=== PATIENT | female | born 1995 | race Caucasian/White ===

== ENCOUNTER 2017-10-22 21:15 | Emergency (ER) | payer OTHER ==
[~2017-10-22] VITALS: Ht 165.1 cm; Wt 54.9 kg
[2017-10-22 21:24] VITALS: Ht 165.1 cm; Wt 54.9 kg
[2017-10-23 00:20] VITALS: BP 112/64
== END 2017-10-23 00:20 | disposition home or self-care (01) ==
LOC: ED 21:15
DX: O21.9 Vomiting of pregnancy, unspecified (principal); Z3A.01 Less than 8 weeks gestation of pregnancy
CPT/HCPCS: J2405; J3490; J7030; J7050

== ENCOUNTER 2017-11-09 09:44 | Inpatient (IN) | payer OTHER ==
[~2017-11-09] VITALS: Ht 154.9 cm; Wt 58.3 kg
[2017-11-09 11:06] LABS: CALCIUM 9.9 mg/dL (8.5-10.1); CARBON DIOXIDE 31.6 mmol/L (21-32); CHLORIDE SERUM 91 mmol/L (98-107); CREATININE SERUM 0.9 mg/dL (0.6-1.0); GFR1 > 60 mL/min; GLUCOSE SERUM 110 mg/dL (74-106); SODIUM SERUM 131 mmol/L (136-145)
[2017-11-09 11:14] LABS: POTASSIUM SERUM 2.7 mmol/L (3.5-5.1)
[2017-11-09 11:21] LABS: BASOPHIL % 0.4 % (0-2); PLATELET COUNT 303 x10^3mcL (130-400); RED CELL DISTRIBUTION WIDTH 12.3 % (11.5-14.5)
[2017-11-09 12:11] LABS: MAGNESIUM 2.8 mg/dL (1.8-2.4); PHOSPHOROUS 2.6 mg/dL (2.5-4.9)
[2017-11-09 12:16] LABS: T3 TOTAL 1.75 ng/mL
[2017-11-09 12:22] LABS: FREE T4 1.44 ng/dL (0.76-1.46)
[2017-11-09 12:27] LABS: CHOLESTEROL/HDL RATIO 2.2; FREE THYROXINE INDEX 6.3 ug/dL (1.4-4.5); T4(THYROXINE) 21.6 ug/dL (4.7-13.3)
[2017-11-09 13:24] LABS: microscopic required? YES; urine erythrocyte NEGATIVE (NEGATIVE)
[2017-11-09 13:25] VITALS: BP 120/86
[2017-11-09 13:54] LABS: AMPHETAMINE QUAL UR NONE DETECTED (NEG <=1000)
[2017-11-09 16:16] LABS: CALCIUM 8.2 mg/dL (8.5-10.1); CARBON DIOXIDE 28.5 mmol/L (21-32); CHLORIDE SERUM 100 mmol/L (98-107); CREATININE SERUM 0.6 mg/dL (0.6-1.0); GFR1 > 60 mL/min; GLUCOSE SERUM 98 mg/dL (74-106); POTASSIUM SERUM 3.1 mmol/L (3.5-5.1); SODIUM SERUM 132 mmol/L (136-145)
[2017-11-09 17:59] VITALS: BP 110/67
[2017-11-09 21:09] VITALS: BP 116/76
[2017-11-10 05:45] VITALS: BP 105/58
[2017-11-10 06:08] LABS: BASOPHIL % 0.4 % (0-2); PLATELET COUNT 199 x10^3mcL (130-400); RED CELL DISTRIBUTION WIDTH 12.5 % (11.5-14.5)
[2017-11-10 06:18] LABS: CALCIUM 8.1 mg/dL (8.5-10.1); CARBON DIOXIDE 25.3 mmol/L (21-32); CHLORIDE SERUM 103 mmol/L (98-107); CREATININE SERUM 0.5 mg/dL (0.6-1.0); GFR1 > 60 mL/min; GLUCOSE SERUM 76 mg/dL (74-106); MAGNESIUM 2.4 mg/dL (1.8-2.4); POTASSIUM SERUM 3.1 mmol/L (3.5-5.1); SODIUM SERUM 136 mmol/L (136-145)
[2017-11-10 09:07] LABS: TOTAL IRON BINDING CAPACITY 324 ug/dL (250-450)
[2017-11-10 09:08] LABS: IRON 203 ug/dL (50-170)
[2017-11-10 09:22] LABS: RED BLOOD CELLS 4.16 M/mm3 (4.10-5.10)
[2017-11-10 09:29] VITALS: BP 117/66
[2017-11-10 09:31] VITALS: BP 117/66; BP 85/54
[2017-11-10 12:36] VITALS: BP 110/60
[2017-11-10 17:26] VITALS: BP 100/55
[2017-11-10 21:22] VITALS: BP 111/63
[2017-11-11 05:41] VITALS: BP 101/58
[2017-11-11] MEDS ORDERED: DICLEGIS1 TCP PO (05:41)
[2017-11-11 05:52] LABS: BASOPHIL % 0.5 % (0-2); PLATELET COUNT 156 x10^3mcL (130-400); RED CELL DISTRIBUTION WIDTH 12.4 % (11.5-14.5)
[2017-11-11 06:15] LABS: CALCIUM 7.9 mg/dL (8.5-10.1); CARBON DIOXIDE 23.1 mmol/L (21-32); CHLORIDE SERUM 105 mmol/L (98-107); CREATININE SERUM 0.4 mg/dL (0.6-1.0); GFR1 > 60 mL/min; GLUCOSE SERUM 74 mg/dL (74-106); PHOSPHOROUS 3.2 mg/dL (2.5-4.9); POTASSIUM SERUM 3.7 mmol/L (3.5-5.1); SODIUM SERUM 137 mmol/L (136-145)
[2017-11-11 09:21] VITALS: BP 109/69
[2017-11-11 09:39] VITALS: BP 109/69
== END 2017-11-11 10:45 | disposition home or self-care (01) | DRG 566 ==
LOC: ED 09:44 → DU 11:23 → MU 11-11 10:14
PROVIDERS: Emergency Medicine; Family Medicine
DX: O26.831 Pregnancy related renal disease, first trimester (principal); N17.0 Acute kidney failure with tubular necrosis; E83.41 Hypermagnesemia; E87.1 Hypo-osmolality and hyponatremia; O21.0 Mild hyperemesis gravidarum; E87.6 Hypokalemia; O99.281 Endocrine, nutritional and metabolic diseases complicating pregnancy, first trimester; Z3A.01 Less than 8 weeks gestation of pregnancy; Z83.3 Family history of diabetes mellitus; E78.5 Hyperlipidemia, unspecified; E05.80 Other thyrotoxicosis without thyrotoxic crisis or storm; O99.011 Anemia complicating pregnancy, first trimester
CPT/HCPCS: 83880; 84439; J0696; J2405; J3480; J3490; J7030

== ENCOUNTER 2019-05-26 05:07 | Emergency (ER) | payer OTHER ==
[~2019-05-26] VITALS: Ht 154.9 cm; Wt 54.6 kg
[~2019-05-26 05:07] MED LIST: DICLEGIS1 TCP PO
[2019-05-26 05:12] VITALS: Ht 154.9 cm; Wt 54.6 kg
[2019-05-26 08:15] VITALS: BP 128/68
== END 2019-05-26 08:15 | disposition home or self-care (01) ==
LOC: ED 05:07
DX: J45.901 Unspecified asthma with (acute) exacerbation (principal)
CPT/HCPCS: J2930; J7030; J7613; J7644; Q0092

== ENCOUNTER 2019-07-02 19:07 | Emergency (ER) | payer OTHER ==
[~2019-07-02] VITALS: Ht 157.5 cm; Wt 57.2 kg
[2019-07-02 19:12] VITALS: Ht 157.5 cm; Wt 57.2 kg
[2019-07-02 22:00] VITALS: BP 94/70
== END 2019-07-02 22:00 | disposition home or self-care (01) ==
LOC: ED 19:07
DX: R07.89 Other chest pain (principal); F41.0 Panic disorder [episodic paroxysmal anxiety]; R19.7 Diarrhea, unspecified; J45.909 Unspecified asthma, uncomplicated
CPT/HCPCS: Q0092

== ENCOUNTER 2019-08-01 01:01 | Emergency (ER) | payer OTHER ==
[~2019-08-01] VITALS: Ht 154.9 cm; Wt 52.2 kg
[2019-08-01 01:04] VITALS: BP 138/86; Ht 154.9 cm; Wt 52.2 kg
== END 2019-08-01 03:39 | disposition left against medical advice (07) ==
LOC: ED 01:01
DX: Z53.21 Procedure and treatment not carried out due to patient leaving prior to being seen by health care provider (principal)

== ENCOUNTER 2019-08-01 23:14 | Emergency (ER) | payer OTHER ==
[~2019-08-01] VITALS: Ht 154.9 cm; Wt 55.8 kg
[2019-08-01 23:29] VITALS: Ht 154.9 cm; Wt 55.8 kg
[2019-08-02 02:50] VITALS: BP 109/78
== END 2019-08-02 02:44 | disposition home or self-care (01) ==
LOC: ED 23:14
DX: R11.2 Nausea with vomiting, unspecified (principal); R10.13 Epigastric pain; J45.909 Unspecified asthma, uncomplicated
CPT/HCPCS: 87804; J1885; Q0162